=== PATIENT | male | born 1950 | race Two or more races ===

== ENCOUNTER 2022-03-18 14:47 | Emergency (ER) | payer MEDICAID, MEDICARE ==
[~2022-03-18] VITALS: Ht 165.1 cm; Wt 79.8 kg
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
--- NOTE | 2022-03-18 15:15 | NUR ---
TO ER 13
[2022-03-18] MEDS ORDERED: ACETAMINOPHEN ES 500 MG TABLET PO ONE (16:00)
--- NOTE | 2022-03-18 16:01 | NUR ---
PATIENT TAKEN TO RADIOLOGY FOR HEAD CT SCAN VIA GURNEY.
[2022-03-18] MEDS ORDERED: ACETAMINOPHEN ES 500 MG TABLET ONE (16:03)
--- NOTE | 2022-03-18 16:05 | NUR ---
CHANDRIKA SAMPLE PROVIDED BY
--- NOTE | 2022-03-18 17:40 | NUR ---
Patient discharged to home in stable condition. Written and verbal after care instructions given. Patient verbalizes understanding of instruction.
[2022-03-18 17:41] VITALS: BP 145/80
== END 2022-03-18 17:44 | disposition home or self-care (01) ==
LOC: ER 14:49 → EDSEX 14:49 → ER 17:44
DX: S00.03XA Contusion of scalp, initial encounter (principal); I10 Essential (primary) hypertension; Z90.49 Acquired absence of other specified parts of digestive tract; W03.XXXA Other fall on same level due to collision with another person, initial encounter; Y93.89 Activity, other specified; Y92.89 Other specified places as the place of occurrence of the external cause; Y99.8 Other external cause status
CPT/HCPCS: 70450-TC